=== PATIENT | male | born 1960 | race Caucasian/White ===

== ENCOUNTER 2020-06-24 15:05 | Emergency (ER) | payer OTHER ==
[~2020-06-24 15:05] MED LIST: ALLERGY RELIEF10 MG PO; ALLOPURINOL100 MG PO; AMARYL4 MG PO; ASPIR-LOW81 MG PO; BYSTOLIC5 MG PO; CARDURA1 MG PO; CLONAZEPAM 1MG T1 MG PO; CYCLOBENZAPRINE10 MG PO; FLOMAX0.4 MG PO; FLUOXETINE HCL40 MG PO; JANUMET XR 1001 EACH PO; LIPITOR 10MG TA10 MG PO; MELOXICAM15 MG PO; NEURONTIN300 MG PO; NORCO 5-325 TA1 EACH PO; NORVASC 10MG TA10 MG PO; OMEPRAZOLE40 MG PO; SINGULAIR10 MG PO; TRAVATAN Z5 ML OU; TRESIBA FL100 UNIT/1 SC; VASCEPA1 GM PO
== END 2020-06-24 17:25 | disposition home or self-care (01) ==
LOC: FER 15:05
DX: S52.521A Torus fracture of lower end of right radius, initial encounter for closed fracture (principal); M79.641 Pain in right hand; I11.0 Hypertensive heart disease with heart failure; I50.9 Heart failure, unspecified; E11.9 Type 2 diabetes mellitus without complications; Z87.39 Personal history of other diseases of the musculoskeletal system and connective tissue; W19.XXXA Unspecified fall, initial encounter; Y92.009 Unspecified place in unspecified non-institutional (private) residence as the place of occurrence of the external cause
CPT/HCPCS: 73110; 73130